=== PATIENT | male | born 1940 | race Caucasian/White ===

== ENCOUNTER 2024-11-07 12:53 | Emergency (ER) | payer MEDICARE, BC ==
[~2024-11-07] VITALS: Ht 182.9 cm; Wt 83.9 kg
[~2024-11-07 12:53] MED LIST: ASTEPRO30 ML NS; K-DUR20 ME2; Z DILTIAZEM PO; Z.0.ASPIRIN325 MG PO; Z.0.BENICAR40 MG PO; Z.0.CENTRUM COMPLE1 PO; Z.0.FLUTICASONE PRO1 NS; Z.0.LEVOTHYROXINE75 PO; Z.0.SIMVASTATIN40 MG PO; Z.0.SINGULAIR10 MG PO; Z.0.TAMSULOSIN HCL0. PO; Z.0.ZYRTEC10 M3 PO; [UNRECOGNIZED DRUG - OTHER] PO
[2024-11-07 13:58] VITALS: TEMP 97.1
[2024-11-07 14:29] LABS: BASOPHILS % 0.3 % (0.0-1.0); EOSINOPHILS % 2.0 % (0.0-6.0); LYMPHOCYTES % 50.2 % (18.0-39.1); MONOCYTES % 6.7 % (4.4-11.3); NEUTROPHILS % 40.7 % (38.7-80.0); RED CELL DISTRIBUTION WIDTH 13.6 % (11.7-14.4)
[2024-11-07 14:47] LABS: INR 1.11
[2024-11-07 14:56] LABS: EST GLOMERULAR FILTRATION RATE 54.0 ML/MIN (>=60)
[2024-11-07 15:40] VITALS: BP 201/94
[2024-11-07] MEDS: HYDRALAZINE HCL 20 MG/ML VIAL IV STA (15:40)
[2024-11-07] MEDS ORDERED: HEPARIN SOD/DEXTROSE 5% 25000 UNIT/250 ML BAG IV SCH (16:30)
[2024-11-07] MEDS: HEPARIN 25,000 UNIT/D5W 250ML 250 ML IV SCH (17:21)
[2024-11-07 18:24] LABS: EOSINOPHILS % (MANUAL) 1 % (0-7); LYMPHOCYTES % (MANUAL) 50 % (19-48); MONOCYTES % (MANUAL) 9 % (3.4-9.0); NEUTROPHILS % (MANUAL) 39 % (40-74); REACTIVE LYMPHOCYTES 1
[2024-11-07 18:25] LABS: PLATELET ESTIMATE ADEQUATE; PLATELET MORPHOLOGY COMMENT NORMAL; RBC MORPHOLOGY COMMENT NORMAL
[2024-11-07 18:37] VITALS: PULSE 81; RESP 16; O2SAT 97
== END 2024-11-07 18:40 | disposition other institution (70) ==
LOC: ER 14:11
DX: M79.89 Other specified soft tissue disorders (principal); I82.422 Acute embolism and thrombosis of left iliac vein; R94.31 Abnormal electrocardiogram [ECG] [EKG]
CPT/HCPCS: 36415; 80053; 83880; 84484; 85025; 85610; 85730; 93005; 93971; 99284; J0360